=== PATIENT | female | born 1980 ===

== ENCOUNTER 2021-11-22 18:18 | Emergency (ER) | payer OTHER ==
[~2021-11-22] VITALS: Ht 152.4 cm; Wt 63.5 kg
[~2021-11-22 18:18] MED LIST: CIPRO500 MG PO; MEDROL4 MG PO; ORPH100T PO; PREDNISONE5 MG/DOSE- PO; PYRIDIUM200 MG PO; SKELAXIN800 MG PO; TRAM1TAB98 PO; TRAMADOL HCL50 MG PO; ULTRAM50 MG PO; ZITHROMAX500 MG PO
== END 2021-11-23 16:12 | disposition home or self-care (01) ==
LOC: ER 18:18
DX: M79.18 Myalgia, other site (principal); Z88.6 Allergy status to analgesic agent; Z88.0 Allergy status to penicillin